=== PATIENT | female | born 1995 | race Caucasian/White ===

== ENCOUNTER 2020-01-26 05:20 | Emergency (ER) | payer SELFPAY ==
[2020-01-26] MEDS ORDERED: Ondansetron PF 4 MG/2 ML Vial ONE ×2 (05:31→05:33)
[2020-01-26] MEDS ORDERED: Promethazine HCl 25 MG/ML VIAL ONE (06:23)
== END 2020-01-26 06:30 | disposition home or self-care (01) ==
LOC: ERS 05:20
DX: R11.2 Nausea with vomiting, unspecified (principal); F41.9 Anxiety disorder, unspecified; F32.9 Major depressive disorder, single episode, unspecified; Z79.899 Other long term (current) drug therapy
CPT/HCPCS: 36415; 80307; 96374; 96375; J2405; J2550

== ENCOUNTER 2020-05-02 12:34 | Emergency (ER) | payer SELFPAY ==
[2020-05-02] MEDS ORDERED: Ondansetron PF 4 MG/2 ML Vial ONE (12:52)
[2020-05-02] MEDS ORDERED: Ketorolac Tromethamine 30 MG/ML VIAL ONE (12:52)
[2020-05-02 13:03] LABS: Bilirubin Negative (Negative); Blood, Urine Negative (Negative); Clarity Clear (Clear); Glucose, Urine (Dipstick) Normal (Negative); Ketone, Urine Negative (Negative); Leukocyte Negative Leu/uL (Negative); Nitrite Negative (Negative); Protein, Urine (Dipstick) Negative (Neg-Trace); Urobilinogen Normal mg/dL (Less than 2); pH, Urine 7.5 (5.0-9.0)
[2020-05-02 13:05] LABS: Pregnancy Test - Urine (BHCG) Negative (Negative); Pregu Control Background? CLEAR/WHITE (CLR/WHITE); Pregu Control Bar Appear? YES (CONTROL BAR)
[2020-05-02] MEDS ORDERED: Promethazine HCl 25 MG/ML VIAL ONE (13:24)
[2020-05-02 13:25] LABS: Hemoglobin 14.3 g/dL (12.0-16.0); Mean Corpuscular HGB CONC 33.8 g/dL (32.0-36.0); Mean Corpuscular Hemoglobin 29.3 pg (27.0-31.0); Mean Corpuscular Volume 86.6 fL (78.0-98.0); Mean Platelet Volume 6.8 fL (7.4-10.4); Platelet Count 179 thou/uL (130-400); RBC Distribution Width 11.5 % (11.5-14.5); Red Blood Cell (RBC) Count 4.88 mill/uL (4.20-5.40); White Blood Cell (WBC) Count 5.9 thou/uL (4.8-10.8)
--- NOTE | 2020-05-02 13:36 | ULT ---
Pelvic ultrasound: 05/02/2020 COMPARISON: None HISTORY: Pelvic pain TECHNIQUE: Multiplanar grayscale sonographic imaging of the pelvis is obtained with transabdominal im aging. The ovaries are assessed with Doppler interrogation including color flow and spectral analysis. FINDINGS: There is no significant free fluid in the pelvis. Bilateral ovaries demonstrate normal bloo d flow. Left ovary measures 3.2 x 3.4 x 2.4 cm and right ovary measures 2.4 x 3.6 x 2.2 cm. Endometrial thickness is approximately 1 cm, within normal limits. The uterus measures 8.1 x 4.4 x 5.8 cm and demonstrates no discrete mass. IMPRESSION: No acute findings.
[2020-05-02 13:38] LABS: Eosinophils 1 % (0-10); Lymphocytes 31 % (21-51); MDiff Complete? YES; Monocytes 6 % (0-10); Neutrophil 50 % (42-75); Platelet Morphology Comment Appears Adequate; RBC Morphology Normal; Reactive Lymphocytes 11 % (0-10)
[2020-05-02 13:48] LABS: ALT (SGPT) 13 U/L (8-55); AST (SGOT) 18 U/L (5-34); Albumin 4.1 g/dL (3.5-5.0); Alkaline Phosphatase 49 U/L (40-110); Anion Gap 17 mmol/L (10-20); BUN (Urea Nitrogen) 10 mg/dL (7.0-18.7); Bilirubin, Total 0.4 mg/dL (0.2-1.2); Calc. Creatinine Clearance 0 mL/min (70-130); Carbon Dioxide 22 mmol/L (22-29); Chloride 100 mmol/L (98-107); Globulin 2.8 g/dL (2.4-3.5); Glucose 84 mg/dL (70-105); Lipase 41 U/L (8-78); Potassium 3.4 mmol/L (3.5-5.1); Protein, Total 6.9 g/dL (6.0-8.3); Sodium 136 mmol/L (136-145)
== END 2020-05-02 14:10 | disposition home or self-care (01) ==
LOC: ERS 12:34
DX: R10.2 Pelvic and perineal pain (principal); F17.210 Nicotine dependence, cigarettes, uncomplicated
CPT/HCPCS: 76856; 80053; 81003; 81025; 83690; 85025; 93976; 96374; 96375; J1885; J2405; J2550

== ENCOUNTER 2023-02-26 22:35 | Observation (INO) | payer SELFPAY ==
[2023-02-26 23:02] LABS: #Eosinphils 0.1 thou/uL (0.0-0.7); #Monocytes 0.4 thou/uL (0.11-0.59); %Basophils 0.6 % (0.0-1.0); %Eosinophils 2.1 % (0.0-10.0); %Lymphocytes 45.9 % (21.0-51.0); %Neutrophils 45.2 % (42.0-75.0); Hematocrit 43.2 % (36.0-47.0); Hemoglobin 15.1 g/dL (12.0-16.0); Mean Corpuscular Hemoglobin 29.9 pg (27.0-31.0); Mean Corpuscular Volume 85.5 fl (78.0-98.0); Mean Platelet Volume 8.5 fL (7.4-10.4); Platelet Count 214 10x3/uL (130-400); RBC Distribution Width 11.5 % (11.5-14.5); Red Blood Cell (RBC) Count 5.05 mill/uL (4.20-5.40); White Blood Cell (WBC) Count 6.7 10x3/uL (4.8-10.8)
[2023-02-26 23:10] LABS: BHCG - Serum Negative (NEGATIVE)
[2023-02-26 23:11] LABS: Pregs Control Background? CLEAR/WHITE (CLR/WHITE); Pregs Control Bar Appear? YES (CONTROL BAR)
[2023-02-26 23:28] LABS: ALT (SGPT) 9 U/L (8-55); AST (SGOT) 17 U/L (5-34); Albumin 4.4 g/dL (3.5-5.0); Alkaline Phosphatase 48 U/L (40-110); Anion Gap 14 mmol/L (10-20); BUN (Urea Nitrogen) 10 mg/dL (7.0-18.7); Bilirubin, Total 0.3 mg/dL (0.2-1.2); Calc. Creatinine Clearance 0 mL/min (70-130); Calcium 9.1 mg/dL (7.8-10.44); Carbon Dioxide 22 mmol/L (22-29); Chloride 105 mmol/L (98-107); Estimated GFR 83; Globulin 2.7 g/dL (2.4-3.5); Glucose 89 mg/dL (70-105); Protein, Total 7.1 g/dL (6.0-8.3); Sodium 138 mmol/L (136-145)
[2023-02-26] MEDS ORDERED: LORazepam 2 MG/ML SYR.(CARPUJECT) ONE (23:50)
[2023-02-27 00:05] LABS: Acetaminophen Less than 10 mcg/mL (10.0-30.0); Magnesium 2.1 mg/dL (1.6-2.6); Salicylate Less than 8.0 mg/dL (15.0-30.0)
[2023-02-27 00:08] LABS: Actual Bicarbonate (HCO3v) 23.5 mEq/L (22-28); Base Excess -2.3 mEq/L (-2.0 to +3.0); Chloride (VBG) 107 mmol/L (98-106); Hematocrit-VBG 48 % (36.0-47.0); Hemoglobin (Hb) 16.2 g/dL (11.7-15.5); Potassium (VBG) 3.43 mmol/L (3.70-5.30); Sodium 145 mmol/L (133-146); pH (venous) 7.347 (7.32-7.43)
[2023-02-27 00:10] LABS: Troponin I Less than 0.010 ng/mL (< 0.028)
[2023-02-27] MEDS ORDERED: Potassium Chloride 20 MEQ/100 ML PREMIX BAG ONE ×2 (00:23→00:24)
[2023-02-27 04:26] LABS: Bacteria/HPF None Seen HPF (None Seen); Bilirubin Negative (Negative); Blood, Urine Negative (Negative); CAUTI Indications for Culture Dysuria,urgency,freq; Clarity Clear (Clear); Glucose, Urine (Dipstick) Normal (Negative); Ketone, Urine Negative (Negative); Leukocyte Negative Leu/uL (Negative); Nitrite Negative (Negative); Protein, Urine (Dipstick) Negative (Neg-Trace); RBC/HPF 0-3 HPF (0-3); Specific Gravity, Urine 1.009 (1.002-1.036); Squamous Epithelial 0-3 HPF (0-3); Urobilinogen Normal mg/dL (Less than 2); WBC/HPF 0-3 HPF (0-3)
[2023-02-27 04:27] LABS: Urine Culture Reflex No No
[2023-02-27 04:34] LABS: Amphetamine Not Detected (NotDetected); Barbiturates Screen Not Detected (NotDetected); Benzodiazepine Screen Detected (NotDetected); Cocaine Metabolite Screen Not Detected (NotDetected); Methadone Not Detected (NotDetected); Methamphetamine Not Detected (NotDetected); Opiate Screen Not Detected (NotDetected); Oxycodone Screen Not Detected (NotDetected); Phencyclidine (PCP) Not Detected (NotDetected); THC/Cannabinoid Screen Detected (NotDetected); Tricyclic Screen Not Detected (NotDetected)
[2023-02-27] MEDS ORDERED: levETIRAcetam 500 MG/5 ML VIAL ONE (05:48)
[2023-02-27] MEDS ORDERED: Acetaminophen 325 MG TAB PO PRN ×2 (07:15→07:40)
[2023-02-27] MEDS ORDERED: Ondansetron PF 4 MG/2 ML Vial IVP PRN ×2 (07:15→07:40)
[2023-02-27] MEDS ORDERED: Ondansetron ODT 4 MG TAB SL PRN (07:15)
[2023-02-27] MEDS ORDERED: Lorazepam 2 MG/ML VIAL SLOW IVP PRN (07:40)
[2023-02-27] MEDS ORDERED: Spironolactone 25 MG TAB PO SCH (08:30)
[2023-02-27 08:31] VITALS: BMI 19.4
[2023-02-27] MEDS ORDERED: Potassium Chloride 20 MEQ TAB PO SCH (08:45)
[2023-02-27] MEDS ORDERED: Citalopram 10 MG TAB PO SCH (09:00)
[2023-02-27] MEDS ORDERED: levETIRAcetam 500 MG TAB PO SCH (09:00)
[2023-02-27] MEDS ORDERED: Famotidine 20 MG TAB PO SCH (09:00)
[2023-02-27] MEDS ORDERED: Amlodipine 10 MG TAB PO SCH (09:00)
[2023-02-27] MEDS ORDERED: Folic Acid 1 MG TAB PO SCH (09:15)
[2023-02-27] MEDS ORDERED: Thiamine 100 MG TAB PO SCH (09:15)
[2023-02-27] MEDS ORDERED: Multivit, Therapeutic 1 TAB PO SCH (09:15)
[2023-02-27] MEDS ORDERED: Magnevist 469MG/ML 20 ML VIAL ONE (09:34)
[2023-02-27 15:38] VITALS: BP 103/69; TEMP 98.1
[2023-02-28] MEDS ORDERED: Spironolactone 25 MG TAB PO SCH (08:00)
[2023-02-28] MEDS ORDERED: Multivit, Therapeutic 1 TAB PO SCH (09:00)
[2023-02-28] MEDS ORDERED: Thiamine 100 MG TAB PO SCH (09:00)
[2023-02-28] MEDS ORDERED: Folic Acid 1 MG TAB PO SCH (09:00)
== END 2023-02-27 17:35 | disposition home or self-care (01) ==
LOC: ERS 22:35 → 2SE 02-27 06:49
PROVIDERS: ADMIT Student in an Organized Health Care Education/Training Program; ATTEND Student in an Organized Health Care Education/Training Program
DX: F10.129 Alcohol abuse with intoxication, unspecified (principal); F12.10 Cannabis abuse, uncomplicated; E87.6 Hypokalemia; I10 Essential (primary) hypertension; Y90.7 Blood alcohol level of 200-239 mg/100 ml; Z88.1 Allergy status to other antibiotic agents; Z88.0 Allergy status to penicillin; Z88.2 Allergy status to sulfonamides; Z91.09 Other allergy status, other than to drugs and biological substances; Z79.899 Other long term (current) drug therapy
CPT/HCPCS: 36415; 70450; 70553; 71045; 80053; 80306; 80307; 81001; 82805; 83735; 84443; 84484; 84703; 85025; 93005; 96361; 96365; 96366; 96367; 96375; A9579; G0378; J1953; J2060; J3480